=== PATIENT | female | born 1940 | race Caucasian/White ===

== ENCOUNTER → 2017-01-15 | Outpatient (CLI) | payer MEDICARE ==
--- NOTE | 2017-01-19 07:35 | MM ---
Reason for exam: screening (asymptomatic). Last mammogram was performed 1 year and 1 month ago. History: Patient is postmenopausal. Family history of premenopausal breast cancer in sister at age 47 and breast cancer in mother at age 74. Physical Findings: A clinical breast exam by your physician is recommended on an annual basis and results should be correlated with mammographic findings. MG 3D Screening Mammo W/Cad Bilateral CC and MLO view(s) were taken. Prior study comparison: December 31, 2015, bilateral MG 3d screening mammo w/cad. September 28, 2014, bilateral MG screening mammo w CAD. There are scattered fibroglandular densities. Finding: There are typically benign calcifications in both breasts. No significant changes in finding since December 31, 2015 and September 28, 2014. ASSESSMENT: Benign, BI-RAD 2 RECOMMENDATION: Routine screening mammogram of both breasts in 1 year.
== END | disposition home or self-care (01) ==
LOC: RADMAMWWP 07:42
PROVIDERS: ATTEND Internal Medicine Geriatric Medicine
DX: Z12.31 Encounter for screening mammogram for malignant neoplasm of breast (principal)
CPT/HCPCS: 77063; G0202

== ENCOUNTER 2018-01-29 15:57 | Emergency (ER) | payer MEDICARE ==
[2018-01-29 16:03] VITALS: RESP 18
--- NOTE | 2018-01-29 16:22 | ED ---
General Adult HPI - General Chief complaint: Fall Stated complaint: fall, ankle injury Time Seen by Provider: 01/29/18 16:00 Source: patient, RN notes reviewed Mode of arrival: ambulatory Limitations: no limitations - History of Present Illness Initial comments: This a 77-year-old female who comes emergency Department stating she was having a bowel movement and she was on the toilet for quite a long time and her leg fell sleep when she went to stand up she fell over and hurt her left ankle. Patient states it was quite a bit of swelling in the lateral aspect of her left ankle and this occurred at 8:00 this morning. Patient states it hurt to walk on but otherwise did not hurt. Patient states she was not can come to the emergency department until her daughter saw a picture of the ankle and demanded that she come to the emergency department. Patient denies any knee pain. Patient denies any hip pain. Patient states when she fell she bumped her head but she did not lose consciousness she was not days and she's not on blood thinners and she has no headache currently. Patient denies any neck pain. Patient denies any numbness weakness. Patient denies any other injury at this time. - Related Data Home Medications Medication Instructions Recorded Confirmed Aspirin 81 mg PO DAILY 03/06/14 02/28/16 Gabapentin [Neurontin] 400 mg PO QID 03/06/14 02/28/16 Lisinopril-Hctz 20-12.5 mg 1 each PO DAILY 03/06/14 02/28/16 [Zestoretic 20-12.5] Omeprazole [PriLOSEC] 40 mg PO AC-BRKFST 03/06/14 02/28/16 Pravastatin Sodium [Pravachol] 20 mg PO HS 03/06/14 02/28/16 glipiZIDE [Glucotrol] 2.5 mg PO AC-BID 03/06/14 02/28/16 metFORMIN HCL [Glucophage] 500 mg PO BID 03/06/14 02/28/16 Levothyroxine Sodium [Synthroid] 50 mcg PO DAILY 02/28/16 02/28/16 Loratadine [Claritin] 1 tab PO DIRECTED 02/28/16 02/28/16 Previous Rx's Medication Instructions Recorded Ondansetron Odt [Zofran ODT] 4 mg PO Q8HR PRN #15 tab 02/28/16 Sulfamethoxazole/Trimethoprim 1 each PO Q12H 7 Days tab 02/28/16 [Bactrim DS 800-160 mg] Allergies Allergy/AdvReac Type Severity Reaction Status Date / Time adhesive Allergy BLISTERS Verified 01/29/18 16:02 meperidine HCl [From Demerol] Allergy Rapid Verified 01/29/18 16:02 Heart Rate Review of Systems ROS Statement: Those systems with pertinent positive or pertinent negative responses have been documented in the HPI. ROS Other: All systems not noted in ROS Statement are negative. Past Medical History Past Medical History: Diabetes Mellitus, GERD/Reflux, Hypertension Additional Past Medical History / Comment(s): GLAUCOMA History of Any Multi-Drug Resistant Organisms: None Reported Past Surgical History: Hernia Repair, Hysterectomy, Orthopedic Surgery Additional Past Surgical History / Comment(s): HAND SURGERY Past Anesthesia/Blood Transfusion Reactions: No Reported Reaction Past Psychological History: Anxiety Smoking Status: Former smoker Past Alcohol Use History: None Reported Past Drug Use History: None Reported - Past Family History Mother Family Medical History: Cancer Sister(s) Family Medical History: Cancer General Exam - General Exam Comments Initial Comments: GENERAL Patient is well-developed and well-nourished. Patient is in mild distress. Patient has no hematoma on the scalp there is a small area of tenderness in the occipital region. EYES Patient's pupils are equal and round. Extraocular motion is intact SKIN Unremarkable NEURO The patient is alert and oriented 3 PYSCH Patient has normal interpersonal interactions. MUSCULOSKELETAL Patient's left ankle is swollen in the medial malleolus area and is extremely tender to touch. Patient has no tenderness about the knee and has full range of motion of the knee and hip Limitations: no limitations Course Vital Signs 01/29/18 01/29/18 15:58 18:07 Temperature 98.7 F 98.5 F Pulse Rate 78 70 Respiratory 18 18 Rate Blood Pressure 120/67 137/60 O2 Sat by Pulse 97 98 Oximetry Procedures - Orthopedic Splinting/Casting Injury #1 Side: left Lower Extremity Injury Location: short leg Lower Extremity Immobilizer: posterior splint Medical Decision Making - Medical Decision Making x-ray shows a proximal fifth metatarsal fracture on the left foot Disposition Clinical Impression: Fracture of fifth metatarsal bone Disposition: HOME SELF-CARE Instructions: Fall Prevention for Older Adults (ED), Foot Fracture in Adults ( ED) Additional Instructions: Patient should be nonweightbearing Is patient prescribed a controlled substance at d/c from ED?: No Referrals: Shubham Jessica DO [Doctor of Osteopathic Medicine] - 1-2 days Time of Disposition: 18:10
--- NOTE | 2018-01-29 17:38 | XR ---
Left foot and left ankle HISTORY: Trauma and pain 3 views of the left foot and 3 views of the left ankle correlated to prior left ankle a 01/29/2018 Bone mineralization is reduced. Joint spaces and alignment are maintained. Linear lucency present at the proximal fifth metatarsal. Plantar calcaneal spur noted. Ossific densities distal to the medial l ateral malleolus are well-corticated and thought likely to be chronic. IMPRESSION: Proximal fifth metatarsal fracture.
[2018-01-29 18:08] VITALS: BP 137/60; PULSE 70; TEMP 98.5
== END 2018-01-29 18:21 | disposition home or self-care (01) ==
LOC: EC 15:57
DX: S92.352A Displaced fracture of fifth metatarsal bone, left foot, initial encounter for closed fracture (principal); E11.9 Type 2 diabetes mellitus without complications; K21.9 Gastro-esophageal reflux disease without esophagitis; I10 Essential (primary) hypertension; F41.9 Anxiety disorder, unspecified; Z87.891 Personal history of nicotine dependence; Z98.890 Other specified postprocedural states; Z79.82 Long term (current) use of aspirin; Z79.84 Long term (current) use of oral hypoglycemic drugs; Z79.899 Other long term (current) drug therapy; Z88.5 Allergy status to narcotic agent; Z91.048 Other nonmedicinal substance allergy status; W18.12XA Fall from or off toilet with subsequent striking against object, initial encounter; Y92.009 Unspecified place in unspecified non-institutional (private) residence as the place of occurrence of the external cause
CPT/HCPCS: 29515; 99283

== ENCOUNTER → 2018-03-22 | Outpatient (CLI) | payer MEDICARE ==
--- NOTE | 2018-03-22 15:31 | BD ---
EXAMINATION TYPE: Axial Bone Density DATE OF EXAM: 03/22/2018 COMPARISON: NONE CLINICAL HISTORY: Postmenopausal female. Osteoporosis screening. Height: Weight: FRAX RISK QUESTIONS: History of Fracture in Adulthood: YES RISK FACTORS HISTORY OF: Active: YES Postmenopausal woman: TOTAL HYST AGE 48 MEDICATIONS: Thyroid Medications:YES Which medication: LEVOTHYROXINE How Lon-7 YEARS Additional Medications: LEVOTHYROXINE, METFORMIN, GLIPIZIDE, PREVASTATIN, A;;EGRA, MULTI, CALCIUM, T D, XANAX NEEDED, ANTIDEPRESSANT Additional History: EXAM MEASUREMENTS: Bone mineral densitometry was performed using the [employer] System. Bone mineral density as measured about the Lumbar spine is: ----- L1-L4(G/cm2): 1.177 T Score Values are as follows: ----- L2: -0.6 ----- L3: -0.2 ----- L4: 0.9 ----- L1-L4: 0.0 Bone mineral density has: INCREASED 4.0 % since study of: 2014 Bone mineral density about the R hip (g/cm2): 0.816 Bone mineral density about the L hip (g/cm2): 0.949 T Score values are as follows: -----R Neck: -1.6 -----L Neck: -0.6 -----R Total: -0.7 -----L Total: -0.5 Bone mineral density has: DECREASED -3.6 % since study of: 2014 IMPRESSION: Osteopenia (T Score between -2.5 and -1). There is slightly increased risk of fracture and the patient may be considered for treatment. Re-Screen 2-5 years. NOTE: T-SCORE=SD OF THE YOUNG ADULT MEAN.
--- NOTE | 2018-03-24 10:00 | MM ---
Reason for exam: screening (asymptomatic). Last mammogram was performed 1 year and 2 months ago. History: Patient is postmenopausal. Family history of premenopausal breast cancer in sister at age 47 and breast cancer in mother at age 74. Physical Findings: A clinical breast exam by your physician is recommended on an annual basis and results should be correlated with mammographic findings. MG 3D Screening Mammo W/Cad Bilateral CC and MLO view(s) were taken. Prior study comparison: January 15, 2017, bilateral MG 3d screening mammo w/cad. December 31, 2015, bilateral MG 3d screening mammo w/cad. There are scattered fibroglandular densities. Stable oil cyst and secretory calcifications bilaterally. No significant changes when compared with prior studies. ASSESSMENT: Negative, BI-RAD 1 RECOMMENDATION: Routine screening mammogram of both breasts in 1 year.
== END | disposition home or self-care (01) ==
LOC: RADMAMWWP 13:33
PROVIDERS: ATTEND Internal Medicine Geriatric Medicine
DX: Z12.31 Encounter for screening mammogram for malignant neoplasm of breast (principal); M85.88 Other specified disorders of bone density and structure, other site
CPT/HCPCS: 77063; 77067; 77080

== ENCOUNTER 2018-07-22 12:34 | Emergency (ER) | payer MEDICARE ==
--- NOTE | 2018-07-22 13:49 | CT ---
EXAMINATION TYPE: CT brain reilly davis con DATE OF EXAM: 07/22/2018 COMPARISON: None HISTORY: Fall. CT DLP: 1485.10 mGycm, Automated exposure control for dose reduction was used. CONTRAST: Patient injected with 0 mL of Isovue 300. CT of the brain is performed utilizing 3 mm thick sections through the posterior fossa and 3 mm thick sections through the remaining calvarium. Patient is asymmetric within the Gantry. Study is performed within 24 hours of arrival to the hospital. No abnormal hyperdensity is present to suggest an acute intracranial hemorrhage. No mass lesion is evident. No acute infarcts are evident. Some mild periventricular white matter hypodensity may be present, li silvia on the basis of chronic white matter ischemic changes. Ventricles and sulci are prominent for the patient age. Air-fluid levels are noted within the maxillary sinuses. Air-fluid levels within the sphenoid sinuses . Ethmoid air cells and mild mucosal thickening. Frontal sinuses are clear. Mastoid air cells are tavo ar. IMPRESSIONS: 1. Atrophy. 2. No acute intracranial process. 3. Clinical correlation recommended for pansinusitis. CT cervical spine. COMPARISON: None CT of the cervical spine is performed in the axial plane at 2 mm thick sections. Reconstructed image s in the coronal, and sagittal plane are reviewed on the computer. No acute fractures are evident. Vertebral body alignment is normal. Diffuse mild disc narrowing is present. Vertebral body heights are preserved. No spinal canal stenosis is evident. No significant foraminal stenosis noted IMPRESSIONS: 1. No acute osseous abnormality cervical spine.
--- NOTE | 2018-07-22 13:49 | XR ---
EXAMINATION TYPE: XR pelvis AP view DATE OF EXAM: 07/22/2018 COMPARISON: None HISTORY: Fall, pain TECHNIQUE: AP pelvis FINDINGS: Femoral heads articulate with the acetabulum. Symphysis pubis and sacroiliac joints are nor mal. No acute fractures are identified. Normal bowel gas is present. There is some calcification within the left hemipelvis may be a uterine fibroid. IMPRESSION: 1. No acute osseous abnormality.
--- NOTE | 2018-07-22 13:50 | XR ---
EXAMINATION TYPE: XR shoulder complete RT DATE OF EXAM: 07/22/2018 COMPARISON: NONE HISTORY: Pain TECHNIQUE: Shoulder examined in 3 projections FINDINGS: The humeral head articulates with the glenoid. The acromio-clavicular junction is normal. No acute fractures or dislocations are evident. A follow up study can be performed 7-10 days from acute trauma for continued pain. IMPRESSION: 1. Normal three-view right Shoulder
--- NOTE | 2018-07-22 13:51 | XR ---
EXAMINATION TYPE: XR chest 1V DATE OF EXAM: 07/22/2018 COMPARISON: None INDICATION: Fall, pain, bronchitis, cough TECHNIQUE: Single frontal view of the chest is obtained. FINDINGS: The heart size is normal. The pulmonary vasculature is normal. The lungs are clear. No pneumothorax is evident. No acute osseous abnormality is evident. IMPRESSION: 1. No acute pulmonary process.
--- NOTE | 2018-07-22 14:07 | ED ---
Fall HPI - General Source: patient, EMS Mode of arrival: EMS Limitations: no limitations <Jerzy Beach - Last Filed: 07/22/18 13:57> <Alin Laboy - Last Filed: 07/22/18 14:30> - General Chief Complaint: Fall Stated Complaint: fall Time Seen by Provider: 07/22/18 12:51 - History of Present Illness Initial Comments: 78-year-old female presented emergency department with chief complaint of a fall. Patient states that she slipped on some ice. Patient complains of right shoulder pain. Patient states she did her head but has no head or neck pains this time. Denies any blood thinners. Denies chest pain, shortness breath, syncopal episode. Patient states that she has very minimal right hip pain states that she is able to fully move it. Patient offers no other complaints. (Jerzy Beach) - Related Data Home Medications Medication Instructions Recorded Confirmed Aspirin 81 mg PO DAILY 03/06/14 07/22/18 Gabapentin [Neurontin] 400 mg PO QID 03/06/14 07/22/18 Lisinopril-Hctz 20-12.5 mg 1 tab PO DAILY 03/06/14 07/22/18 [Zestoretic 20-12.5] Omeprazole [PriLOSEC] 40 mg PO AC-BRKFST 03/06/14 07/22/18 Pravastatin Sodium [Pravachol] 20 mg PO HS 03/06/14 07/22/18 glipiZIDE [Glucotrol] 2.5 mg PO AC-BID 03/06/14 07/22/18 metFORMIN HCL [Glucophage] 500 mg PO DAILY 03/06/14 07/22/18 Levothyroxine Sodium [Synthroid] 50 mcg PO DAILY 02/28/16 07/22/18 Loratadine [Claritin] 1 tab PO DAILY 02/28/16 07/22/18 Calcium Carbonate/Vitamin D3 1 tab PO DAILY 07/22/18 07/22/18 [Calcium 500-Vit D3 200 Tablet] Dicyclomine [Bentyl] 10 mg PO BID 07/22/18 07/22/18 metFORMIN HCL [Glucophage] 1,000 mg PO HS 07/22/18 07/22/18 Allergies Allergy/AdvReac Type Severity Reaction Status Date / Time adhesive Allergy BLISTERS Verified 07/22/18 13:47 meperidine HCl [From Demerol] Allergy Rapid Verified 07/22/18 13:47 Heart Rate Review of Systems ROS Other: All systems not noted in ROS Statement are negative. <YongJerzy Portillo - Last Filed: 07/22/18 13:57> ROS Other: All systems not noted in ROS Statement are negative. <Alin Laboy - Last Filed: 07/22/18 14:30> ROS Statement: Those systems with pertinent positive or pertinent negative responses have been documented in the HPI. Past Medical History Past Medical History: Diabetes Mellitus, GERD/Reflux, Hypertension Additional Past Medical History / Comment(s): GLAUCOMA History of Any Multi-Drug Resistant Organisms: None Reported Past Surgical History: Hernia Repair, Hysterectomy, Orthopedic Surgery Additional Past Surgical History / Comment(s): HAND SURGERY Past Anesthesia/Blood Transfusion Reactions: No Reported Reaction Past Psychological History: Anxiety Smoking Status: Former smoker Past Alcohol Use History: None Reported Past Drug Use History: None Reported - Past Family History Mother Family Medical History: Cancer Sister(s) Family Medical History: Cancer <Jerzy Beach Lindsey - Last Filed: 07/22/18 13:57> General Exam Limitations: no limitations General appearance: alert, in no apparent distress Head exam: Present: atraumatic, normocephalic, normal inspection Eye exam: Present: normal appearance, PERRL, EOMI. Absent: scleral icterus, conjunctival injection, periorbital swelling ENT exam: Present: normal exam, mucous membranes moist Neck exam: Present: normal inspection, full ROM. Absent: tenderness, meningismus, lymphadenopathy Respiratory exam: Present: normal lung sounds bilaterally. Absent: respiratory distress, wheezes, rales, rhonchi, stridor Cardiovascular Exam: Present: regular rate, normal rhythm, normal heart sounds. Absent: systolic murmur, diastolic murmur, rubs, gallop, clicks GI/Abdominal exam: Present: soft, normal bowel sounds. Absent: distended, tenderness, guarding, rebound, rigid Extremities exam: Present: other (Right shoulder mild tenderness, pain with range of motion neurovascular intact no hip tenderness with palpation, remaining extremity exam within normal limits.) Back exam: Present: full ROM. Absent: tenderness Neurological exam: Present: alert, oriented X3, CN II-XII intact, reflexes normal. Absent: motor sensory deficit <Dedoe,Jerzy M - Last Filed: 07/22/18 13:57> Course <Jerzy Beach - Last Filed: 07/22/18 13:57> <Alin Laboy - Last Filed: 07/22/18 14:30> Vital Signs 07/22/18 12:51 Temperature 97.2 F L Pulse Rate 76 Respiratory 16 Rate Blood Pressure 155/76 O2 Sat by Pulse 96 Oximetry - Reevaluation(s) Reevaluation #1: 07/22/18 14:30 PA supervision: I proceeded [id number] evaluation the patient she did slip and fall today landing on her right shoulder. I did review the imaging and reports no acute findings. Patient does states she believes she may have fallen in this acute shoulder but what I can. Showing discharged with appropriate follow-up. I do agree with the assessment and plan. (Alin Laboy) Medical Decision Making <Jerzy Beach - Last Filed: 07/22/18 13:57> <Alin Laboy - Last Filed: 07/22/18 14:30> - Medical Decision Making 78-year-old female presents from for some fall. X-rays reviewed no acute fracture. Patient was placed in a sling for comfort care and the right shoulder patient will be discharged return parameters discussed. (Jerzy Beach) Disposition Is patient prescribed a controlled substance at d/c from ED?: No Time of Disposition: 14:18 <Jerzy Beach - Last Filed: 07/22/18 13:57> <Alin Laboy - Last Filed: 07/22/18 14:30> Clinical Impression: Fall, Sprain of right shoulder, Contusion, hip Disposition: HOME SELF-CARE Condition: Stable Instructions (If sedation given, give patient instructions): Shoulder Sprain ( ED) Additional Instructions: Please return to the Emergency Department if symptoms worsen or any other concerns. Referrals: Addy Alexandra MD [Primary Care Provider] - 1-2 days Des Toussaint DO [Doctor of Osteopathic Medicine] - 1-2 days Addendum entered and electronically signed by Jerzy Beach PA-C 07/22/18 14: 24: Addendum to HPI. Patient tripped over a oxygen tank cord while visiting her at custodial. She did not slip on ice.
[2018-07-22 15:09] VITALS: RESP 18
[2018-07-22 15:42] VITALS: BP 137/88; PULSE 81; TEMP 98.1
== END 2018-07-22 15:41 | disposition home or self-care (01) ==
LOC: EC 12:34
DX: S43.401A Unspecified sprain of right shoulder joint, initial encounter (principal); S70.00XA Contusion of unspecified hip, initial encounter; E11.9 Type 2 diabetes mellitus without complications; K21.9 Gastro-esophageal reflux disease without esophagitis; I10 Essential (primary) hypertension; Z87.891 Personal history of nicotine dependence; Z79.82 Long term (current) use of aspirin; Z79.84 Long term (current) use of oral hypoglycemic drugs; Z79.890 Hormone replacement therapy; Z79.899 Other long term (current) drug therapy; Z91.048 Other nonmedicinal substance allergy status; Z88.5 Allergy status to narcotic agent; W18.09XA Striking against other object with subsequent fall, initial encounter; Y92.219 Unspecified school as the place of occurrence of the external cause
CPT/HCPCS: 70450; 71045; 72125; 72170; 99284

== ENCOUNTER → 2018-08-30 | Outpatient (CLI) | payer MEDICARE ==
[2018-08-30 11:27] LABS: HCT 38.1 % (34.0-46.0); HGB 12.6 gm/dL (11.4-16.0); MCH 31.9 pg (25.0-35.0); MCV 96.9 fL (80.0-100.0); Mean Platelet Volume 8.3; Platelet Count 304 k/uL (150-450); RBC 3.93 m/uL (3.80-5.40); RDW 13.1 % (11.5-15.5); WBC 7.4 k/uL (3.8-10.6)
[2018-08-30 11:30] LABS: Potassium 4.7 mmol/L (3.5-5.1)
== END | disposition home or self-care (01) ==
LOC: LABPAT 10:14
PROVIDERS: ATTEND Internal Medicine Interventional Cardiology
DX: Z01.812 Encounter for preprocedural laboratory examination (principal); R06.02 Shortness of breath; R94.39 Abnormal result of other cardiovascular function study
CPT/HCPCS: 36415; 80051; 82565; 84520; 85027

== ENCOUNTER 2018-09-13 06:25 | Day surgery (SDC) | payer MEDICARE ==
[2018-09-07 10:46] VITALS: BMI 32.1
[~2018-09-13 06:25] MED LIST: ALPRAZolam 0.25 MG TAB PO PRN; ASPIRIN 325 MG TAB PO STA; SODIUM CHLORIDE 0.9% 1,000 ML in EMPTY BAG 1 BAG IV ONE
[2018-09-13] MEDS ORDERED: diphenhydrAMINE 25 MG CAP PO STA (06:58)
[2018-09-13 07:21] VITALS: RESP 16; TEMP 98.4
[2018-09-13 07:22] LABS: Glucose,Whole Blood 180 mg/dL (75-99)
[2018-09-13] MEDS ORDERED: fentaNYL (PF) 50 MCG/ML 2 ML AMP IV ONE (07:56)
[2018-09-13] MEDS ORDERED: LIDOCAINE 1% INJ 10MG/ML (20 ML MDV) SQ ONE (07:59)
[2018-09-13] MEDS ORDERED: VERAPAMIL SYRINGE (5 MG/10 ML) INTRAARTER ONE (08:01)
[2018-09-13] MEDS ORDERED: IOPAMIDOL-370 150ML BTL INJ ONE (08:14)
[2018-09-13] MEDS ORDERED: RX INFO: IV CONTRAST WAS GIVEN 1 EACH MISC MISCELLANE PRN (08:31)
[2018-09-13] MEDS ORDERED: ACETAMINOPHEN TAB 325 MG TAB ONE (08:31)
[2018-09-13] MEDS ORDERED: SODIUM CHLORIDE 0.9% 1,000 ML IV SCH (08:45)
[2018-09-13] MEDS ORDERED: LEVOTHYROXINE 50 MCG TAB PO SCH (09:00)
[2018-09-13] MEDS ORDERED: ASPIRIN 81 MG PO SCH (09:00)
[2018-09-13] MEDS ORDERED: DICYCLOMINE 10 MG CAP PO SCH (09:00)
[2018-09-13] MEDS ORDERED: GABAPENTIN 400 MG CAP PO SCH (09:00)
[2018-09-13] MEDS ORDERED: LISINOPRIL-HCTZ 20-12.5 MG 1 EACH TAB PO SCH (09:00)
[2018-09-13] MEDS ORDERED: CALCIUM CARB-VIT D 500MG-200UN 1 EACH TAB PO SCH (09:00)
[2018-09-13] MEDS ORDERED: LORATADINE 10 MG TAB PO SCH (09:00)
--- NOTE | 2018-09-13 09:08 | CC ---
CARDIAC CATHETERIZATION REPORT Mrs. Blevins is an 78-year-old female with known history of hypertension, hyperlipidemia, and diabetes mellitus who has been complaining of chest discomfort, underwent a myocardial perfusion imaging that revealed evidence of anterior wall ischemia. In view of that, recommendation made regarding cardiac catheterization. The procedures, risks, and complication were discussed with the patient who is in full understanding and agreement. PROCEDURE: Patient was brought to the computer laboratory technician in a fasting semi-sedated state after receiving fentanyl and Benadryl and achieving moderate conscious sedated state. Using Xylocaine anesthesia and Seldinger technique, a 6-Spanish sheath was introduced in the right radial artery. Selective right and left coronary angiography was performed using 5- Spanish 3.5 bend right and left Becky catheter, multiple views of the coronary artery including hemiaxial views obtained. Following that, a 5-Spanish tight pigtail catheter introduced into the left ventricle and a 30 degree MADDOX view of the left ventricle was obtained. Following that, catheter and sheaths were removed. Hemostasis was obtained with deployment of a TR band. There was no immediate complication patient is returned to room in stable condition. Of note, the patient received 4500 units of intravenous heparin as well as intra-arterial verapamil. FINDINGS: FLUOROSCOPY: There was severe mitral anulus calcification. LEFT MAIN: This is a large-sized vessel, bifurcating into left circumflex, left anterior descending artery. Left main coronary artery has no evidence of next coronary artery disease. LEFT ANTERIOR DESCENDING ARTERY: This is a large-sized vessel reaching toward the apex with a wraparound apex segment giving rise to a moderately sized diagonal branch. The left anterior descending artery in mid segment has a 30% plaque. The rest of the vessel has no high-grade stenosis. LEFT CIRCUMFLEX: This is a nondominant vessel giving rise to 3 obtuse marginal branches. The second one is largest in caliber, the left circumflex as well as branches have no evidence of obstructive coronary artery disease. RIGHT CORONARY ARTERY: This is a large dominant vessel, bifurcating distally into PDA and posterolateral segment and branches. The right coronary artery in mid segment has a 20% plaque. The rest of the vessel has no high-grade stenosis. LEFT VENTRICULOGRAM: Was performed in 30 degree MADDOX view and revealed normal left ventricular size and systolic function. Ejection fraction is 60%. There was 1+ mitral regurgitation. HEMODYNAMICS: There was no gradient across the aortic valve. The left ventricular end-diastolic pressure was 10-12 mmHg. CONCLUSION: 1. Mild coronary artery disease involving the right coronary artery and the mid left anterior descending artery. 2. Calcified mitral anulus calcification. 3. Normal left ventricular size and systolic function. RECOMMENDATION: In view of finding anatomy, I would recommend continue medical therapy with aggressive coronary risk factor modifications being initiated. Those findings and recommendation were discussed with the patient her family who are in full understanding and agreement. Duration of procedure is 17 minutes. MMODL / IJN: [id number] /
--- NOTE | 2018-09-13 09:20 | LTR ---
DATE OF SERVICE: 09/13/2018 RE: Dominga Blevins Dear Dr. Alexandra; I had the pleasure to perform cardiac catheterization on Mrs. Blevins at [facility] on September 13, 2018 and a full copy of the procedure will be forwarded to you. In brief, she was found to have mild intimal coronary artery disease with a preserved ventricular size systolic function based on this finding I recommend continue medical therapy with aggressive risk modifications being initiated. Thank you again for allowing me to participate in this patient's personal care. Please free free to call for any questions. Sincerely yours, MD MARTHA WhitneyL / NENON: [phone] /
[2018-09-13 13:20] VITALS: BP 136/62; PULSE 76
[2018-09-13] MEDS ORDERED: PRAVASTATIN SODIUM 20 MG TAB PO SCH (21:00)
[2018-09-14] MEDS ORDERED: NON-FORMULARY DRUG (Omeprazole [Prilosec] 40 MG) PO SCH (07:30)
== END 2018-09-13 13:20 | disposition home or self-care (01) ==
LOC: CATHCVL 06:25
PROVIDERS: ATTEND Internal Medicine Interventional Cardiology
DX: I25.10 Atherosclerotic heart disease of native coronary artery without angina pectoris (principal); I05.9 Rheumatic mitral valve disease, unspecified; R94.39 Abnormal result of other cardiovascular function study; R07.89 Other chest pain; I10 Essential (primary) hypertension; E78.00 Pure hypercholesterolemia, unspecified; E78.2 Mixed hyperlipidemia; E11.9 Type 2 diabetes mellitus without complications; Z72.0 Tobacco use; Z79.84 Long term (current) use of oral hypoglycemic drugs; Z79.82 Long term (current) use of aspirin; Z79.890 Hormone replacement therapy; Z79.899 Other long term (current) drug therapy; Z88.5 Allergy status to narcotic agent; Z91.048 Other nonmedicinal substance allergy status
CPT/HCPCS: 93458; C1769 ×2; C1894; J2001; J3010; J1644; Q9967

== ENCOUNTER → 2020-03-21 | Outpatient (CLI) | payer MEDICARE ==
--- NOTE | 2020-03-22 13:58 | MM ---
Reason for exam: screening (asymptomatic). Last mammogram was performed 2 years ago. History: Patient is postmenopausal. Family history of premenopausal breast cancer in sister at age 47 and breast cancer in mother at age 74. Physical Findings: A clinical breast exam by your physician is recommended on an annual basis and results should be correlated with mammographic findings. MG 3D Screening Mammo W/Cad Bilateral CC and MLO view(s) were taken. Prior study comparison: March 22, 2018, bilateral MG 3d screening mammo w/cad. January 15, 2017, bilateral MG 3d screening mammo w/cad. There are scattered fibroglandular densities. No significant changes when compared with prior studies. ASSESSMENT: Benign, BI-RAD 2 RECOMMENDATION: Routine screening mammogram of both breasts in 1 year.
== END | disposition home or self-care (01) ==
LOC: RADMAMWWP 10:43
PROVIDERS: ATTEND Internal Medicine Geriatric Medicine
DX: Z12.31 Encounter for screening mammogram for malignant neoplasm of breast (principal)
CPT/HCPCS: 77063; 77067